=== PATIENT | female | born 1980 | race Caucasian/White ===

== ENCOUNTER 2016-11-08 16:18 | Emergency (ER) | payer BC, OTHER ==
[2016-11-08 16:52] VITALS: BP 107/63
--- NOTE | 2016-11-08 18:10 | UC ---
UC General HPI - HPI Summary HPI Summary: PATIENT IS TEN WEEKS ; SINUS CONGESTION SNEEZING PRESSURE, BODY ACHES FOR ONE DAY. ALSO WHITE DISCHARGE FROM VAGINA, HAD BEEN ON CLINDAMYCIN, FINISHED COURSE OF ANTIBIOTIC; NO CHANGE IN SYMPTOMS. - History of Current Complaint Chief Complaint: UCGeneralIllness Stated Complaint: SINUS/CONGESTION/HEAD PRESSURE Time Seen by Provider: 11/08/16 16:50 Hx Obtained From: Patient, Family/Business Editor Onset/Duration: Sudden Onset Onset Severity: Moderate Current Severity: Moderate Associated Signs & Symptoms: Positive: Cough, Fever - Allergy/Home Medications Allergies/Adverse Reactions: Allergies Allergy/AdvReac Type Severity Reaction Status Date / Time No Known Allergies Allergy Verified 11/08/16 16:38 Home Medications: Home Medications Docusate CAP* [Colace Cap*] 100 mg PO DAILY 11/08/16 [History Confirmed 11/08/16 ] Folic Acid TAB* [Folvite TAB*] 1 mg PO DAILY 11/08/16 [History Confirmed ] Phenylephrine W/ Acetaminophen [Tylenol Sinus Congestion 5-325 mg] 1 tab PO Q6H PRN 11/08/16 [History Confirmed 11/08/16] Vitamin TAB* 1 tab PO DAILY 11/08/16 [History Confirmed 11/08/16] PMH/Surg Hx/FS Hx/Imm Hx Previously Healthy: Yes Cardiovascular History Of: Reports: Cardiac Disorders - murmur at Denies: Hypertension, Pacemaker/ICD, Myocardial Infarction, Congestive Heart Failure, Atrial Fibrillation, Deep Vein Thrombosis, Bleeding Disorders Respiratory History Of: Denies: COPD, Asthma, Bronchitis, Pneumonia, Pulmonary Embolism GI/ History Of: Denies: Gastroesophageal Reflux, Ulcer, Gastrointestinal Bleed, Gall Bladder Disease, Kidney Stones, Diverticulitis, Renal Disease, Urosepsis Neurological History Of: Denies: TIA, CVA, Dementia, Seizures, Migraine Psychological History Of: Denies: Anxiety, Depression, Bipolar Disorder, Schizophrenia, Post Traumatic Stress Disorder Cancer History Of: Denies: Lung Cancer, Colorectal Cancer, Breast Cancer, Prostate Cancer, Cervical Cancer - Surgical History Surgical History: None Surgery Procedure, Year, and Place: MOLES REMOVED, LASIK EYE SURGERY - Family History Known Family History: Positive: None, Hypertension - Social History Lives: With Family Alcohol Use: None Substance Use Type: None Substance Use Comment - Amount & Last Used: rare Smoking Status (MU): Light Every Day Tobacco Smoker Type: Cigarettes Amount Used/How Often: 1 cigarette a day Length of Time of Smoking/Using Tobacco: 7 Years Have You Smoked in the Last Year: Yes Household Exposure Type: Cigarettes - Immunization History Most Recent Influenza Vaccination: Not the Season Review of Systems Constitutional: Fever, Chills, Fatigue Skin: Negative Eyes: Negative ENT: Nasal Discharge Respiratory: Cough Cardiovascular: Negative Gastrointestinal: Negative Genitourinary: Negative Motor: Negative Neurovascular: Negative Musculoskeletal: Myalgia Neurological: Negative Psychological: Negative All Other Systems Reviewed And Are Negative: Yes Physical Exam Triage Information Reviewed: Yes Appearance: No Pain Distress, Well-Nourished, Ill-Appearing Vital Signs: Initial Vital Signs Temp 97.9 F 11/08/16 16:40 Pulse 89 11/08/16 16:40 Resp 16 11/08/16 16:40 BP 107/63 11/08/16 16:40 Pulse Ox 99 11/08/16 16:40 Vital Signs Reviewed: Yes Eye Exam: Normal ENT Exam: Normal ENT: Positive: Normal ENT inspection, Hearing grossly normal, Pharynx normal, TMs normal Dental Exam: Normal Neck exam: Normal Neck: Positive: Supple, Nontender, No Lymphadenopathy Respiratory Exam: Normal Respiratory: Positive: Chest non-tender, Lungs clear, Normal breath sounds, No respiratory distress Cardiovascular Exam: Normal Cardiovascular: Positive: RRR, No Murmur Abdominal Exam: Normal Abdomen Description: Positive: Nontender, No Organomegaly Musculoskeletal Exam: Normal Musculoskeletal: Positive: Strength Intact, ROM Intact Neurological Exam: Normal Psychological Exam: Normal Psychological: Positive: Normal Response To Family Skin Exam: Normal Course/Dx - Differential Dx - Multi-Symptom Differential Diagnoses: Other - INFLUENZA Provider Diagnoses: INFLUENZA. BACTERIAL VAGINOSIS - Physician Notifications Discussed Patient Care With: DR THEODORE: ADVISED TO START TAMIFLU;. ALSO ADVISED TO WAIT TO TREAT BV UNTIL AFFIRM RESULTS RETURN. PATIENT WILL FOLLOW UP WITH DR THEODORE'S OFFICE Time Discussed With Above Provider: 17:45 Instructed by Provider To: Have Pt Call For Appt. Discharge - Discharge Plan Condition: Stable Disposition: HOME Prescriptions: Oseltamivir CAP* [Tamiflu CAP*] 75 mg PO BID #10 cap Patient Education Materials: Bacterial Vaginosis (ED), Influenza (ED) Forms: *Work Release Referrals: Johnson Theodore MD [Medical Doctor] - Non Staff,Doctor [Primary Care Provider] -
== END 2016-11-08 18:10 | disposition home or self-care (01) ==
LOC: UCCORT 16:18
DX: O23.591 Infection of other part of genital tract in pregnancy, first trimester (principal); N76.0 Acute vaginitis; Z3A.10 10 weeks gestation of pregnancy; J11.1 Influenza due to unidentified influenza virus with other respiratory manifestations; F17.210 Nicotine dependence, cigarettes, uncomplicated
CPT/HCPCS: 87480; 87502; 87510; 99212; G0463

== ENCOUNTER 2017-01-10 16:50 | Emergency (ER) | payer BC, MEDICAID ==
[2017-01-10 17:14] VITALS: BP 116/65
--- NOTE | 2017-01-10 17:28 | UC ---
Minor Trauma HPI - History of Current Complaint Chief Complaint: UCTrauma Stated Complaint: FACIAL INJURY,ARM PAIN FROM FALL 19 WEEKS PREG. Time Seen by Provider: 01/10/17 17:22 Hx Obtained From: Patient Hx Last Menstrual Period: JUL 2016 ?: Yes Onset/Duration: Sudden Onset - tripped on sidewalk at 4:15 PM., Still Present Onset Of Pain: Immediate Severity Initially: Moderate Severity Currently: Mild Mechanism Of Injury: Fall From A Standing Position - walking Aggravating Factor(s): Ambulation Alleviating Factor(s): Nothing Associated Signs And Symptoms: Negative: Loss Of Consciousness, Ecchymosis, Swelling - Risk Factors Penetrating Injury Risk Factors: Negative - Allergies/Home Medications Allergies/Adverse Reactions: Allergies Allergy/AdvReac Type Severity Reaction Status Date / Time No Known Allergies Allergy Verified 01/10/17 17:00 Home Medications: Home Medications Cephalexin CAP* [Keflex CAP*] 500 mg PO QID 01/10/17 [History Confirmed 01/10/17 ] PMH/Surg Hx/FS Hx/Imm Hx Cardiovascular History Of: Reports: Cardiac Disorders - murmur at Denies: Hypertension, Pacemaker/ICD, Myocardial Infarction, Congestive Heart Failure, Atrial Fibrillation, Deep Vein Thrombosis, Bleeding Disorders Respiratory History Of: Denies: COPD, Asthma, Bronchitis, Pneumonia, Pulmonary Embolism GI/ History Of: Denies: Gastroesophageal Reflux, Ulcer, Gastrointestinal Bleed, Gall Bladder Disease, Kidney Stones, Diverticulitis, Renal Disease, Urosepsis Neurological History Of: Denies: TIA, CVA, Dementia, Seizures, Migraine Psychological History Of: Denies: Anxiety, Depression, Bipolar Disorder, Schizophrenia, Post Traumatic Stress Disorder Cancer History Of: Denies: Lung Cancer, Colorectal Cancer, Breast Cancer, Prostate Cancer, Cervical Cancer - Surgical History Surgical History: None Surgery Procedure, Year, and Place: MOLES REMOVED, LASIK EYE SURGERY - Family History Known Family History: Positive: None, Hypertension - Social History Occupation: Employed Full-time Lives: With Family Alcohol Use: None Substance Use Type: None Substance Use Comment - Amount & Last Used: rare Smoking Status (MU): Former Smoker Type: Cigarettes Amount Used/How Often: 1 cigarette a day Length of Time of Smoking/Using Tobacco: 7 Years Have You Smoked in the Last Year: Yes When Did the Patient Quit Smoking/Using Tobacco: NOVEMBER 2016 Household Exposure Type: Cigarettes - Immunization History Most Recent Influenza Vaccination: Not the Season Review of Systems Skin: Other - abrasions All Other Systems Reviewed And Are Negative: Yes Physical Exam Triage Information Reviewed: Yes Appearance: Well-Appearing, Well-Nourished, Pain Distress - mild Vital Signs: Initial Vital Signs Temp 98.7 F 01/10/17 17:03 Pulse 79 01/10/17 17:03 Resp 20 01/10/17 17:03 BP 116/65 01/10/17 17:03 Pulse Ox 100 01/10/17 17:03 Vital Signs Reviewed: Yes Eyes: Positive: Conjunctiva Clear Dental: Positive: Dental Fracture @ - chipped incisor Neck: Positive: Supple, Nontender Respiratory Exam: Normal Cardiovascular: Positive: RRR, Pulses Normal, Murmur:Sys:Grade _?_/ - 2/6 Abdomen Description: Positive: Nontender, Other: - Gravid with Uterus below umbilicus Musculoskeletal Exam: Normal Neurological Exam: Normal Psychological Exam: Normal Skin: Positive: Other - Multiple abrasions. Minor Trauma Course/Dx - Differential Dx/Diagnosis Differential Diagnosis/HQI/PQRI: Abrasion(s), Contusion(s), Laceration(s) Provider Diagnoses: Abrasion left leg, bilateral hands. 2nd trimester Discharge - Discharge Plan Condition: Stable Disposition: HOME Patient Education Materials: Abrasion (ED) Additional Instructions: Use antibiotic ointment or Vaseline twice a day with telfa pads on abrasions until they heal. Images Hands: 1 - Abrasion 2 - abrasion. Front/Back of Body, Lg ([place]): 1 - Abrasion 2 - abrasion 3 - Abrasion 4 - erythema
== END 2017-01-10 17:57 | disposition home or self-care (01) ==
LOC: UCCORT 16:50
DX: O26.892 Other specified pregnancy related conditions, second trimester (principal); S80.812A Abrasion, left lower leg, initial encounter; S60.512A Abrasion of left hand, initial encounter; S60.511A Abrasion of right hand, initial encounter; Z3A.19 19 weeks gestation of pregnancy; W01.0XXA Fall on same level from slipping, tripping and stumbling without subsequent striking against object, initial encounter; Y93.9 Activity, unspecified; Y92.480 Sidewalk as the place of occurrence of the external cause; Z87.891 Personal history of nicotine dependence
CPT/HCPCS: 99212; G0463